=== PATIENT | female | born 1995 | race Caucasian/White ===

== ENCOUNTER 2022-03-16 12:24 | Emergency (ER) | payer OTHER, SELFPAY ==
[2022-03-16 12:45] VITALS: BP 125/80; PULSE 95; RESP 18; TEMP 36.5; O2SAT 97
--- NOTE | 2022-03-16 13:09 | ED.EAR ---
HPI - Ear Problem General Chief complaint: Ear Stated complaint: unable to hear from left ear Time Seen by Provider: 03/16/22 12:52 Source: patient Mode of arrival: ambulatory Limitations: no limitations History of Present Illness HPI Narrative: Patient presents today stating she cannot hear from her left ear. She was diagnosed with otitis media 3 days ago in the emergency department and prescribed Augmentin, which she has been taking as prescribed. States her pain has significantly decreased and currently rates at 2/10. She has been taking ibuprofen which has been providing relief. She does report some clear yellow drainage at times. Denies any additional symptoms. Related Data Home Medications Medication Instructions Recorded Confirmed amoxicillin 875 mg-potassium 1 tablet BID 03/16/22 03/16/22 clavulanate 125 mg tablet levonorgestrel 20 mcg/24 hours (8 1 device intrauterine ONCE 03/16/22 03/16/22 yrs) 52 mg intrauterine device (Mirena) Allergies Allergy/AdvReac Type Severity Reaction Status Date / Time levofloxacin [From Levaquin] Allergy Unknown Verified 03/16/22 12:51 Review of Systems Review of Systems: CONSTITUTIONAL: Denies body aches, fever, chills, or sweats. EYES: Denies visual changes, redness, or discharge. ENT: Denies rhinorrhea, congestion, sore throat. + left ear pain, drainage, decreased hearing CARDIOVASCULAR: Denies chest pain, palpitations, or edema. RESPIRATORY: Denies cough or dyspnea. GASTROINTESTINAL: Denies abdominal pain, nausea, vomiting, or diarrhea. GENITOURINARY: Denies dysuria or hematuria. SKIN: Denies rash, itching, or wounds. MUSCULOSKELETAL: Denies back pain, joint pain, or myalgia. NEUROLOGIC: Denies headache, numbness, tingling, or weakness. PSYCH: Denies depression or anxiety. PMFSH Comments At time of signature, I have reviewed and agree with nursing past medical, surgical, social and family history unless otherwise noted. Please see nursing chart for further information. There is no relevant family history pertinent to the presenting complaint Exam Narrative: GENERAL: Well-appearing, well-nourished, and in no acute distress. HEAD: Normocephalic, atraumatic. EYES: EOMI. No redness or drainage. Conjunctivae normal. ENT: Mucous membranes pink and moist. Nares clear. No rhinorrhea. Right TM normal. Left TM mildly erythematous and dull. No obvious rupture noted. No drainage noted in the canal. NECK: Normal AROM. Supple. No lymphadenopathy. CHEST: No respiratory distress. EXTREMITIES: Normal range of motion. No edema. SKIN: Warm, dry, no rash. Capillary refill normal. Normal skin turgor. NEURO: No focal deficits. Alert and oriented x3. Gait steady. PSYCH: Normal affect. No signs of depression or anxiety. Course Course Level of Care: Express Care Visit Vital Signs Vital signs: Vital Signs Temperature 97.7 F 03/16/22 12:45 Pulse Rate 95 03/16/22 12:45 Respiratory Rate 18 03/16/22 12:45 Blood Pressure 125/80 03/16/22 12:45 Pulse Oximetry 97 03/16/22 12:45 Oxygen Delivery Room Air 03/16/22 12:45 Temperature 97.7 F 03/16/22 12:45 Pulse Rate 95 03/16/22 12:45 Respiratory Rate 18 03/16/22 12:45 Blood Pressure 125/80 03/16/22 12:45 Pulse Oximetry 97 03/16/22 12:45 Oxygen Delivery Room Air 03/16/22 12:45 Reviewed. Pt has been instructed to follow up with her PCP regarding her elevated blood pressure today. Medical Decision Making Differential Diagnosis Differential Diagnosis: Otitis media, otitis externa, ruptured TM Vital Signs Vital Signs: Vital Signs Temperature 97.7 F 03/16/22 12:45 Pulse Rate 95 03/16/22 12:45 Respiratory Rate 18 03/16/22 12:45 Blood Pressure 125/80 03/16/22 12:45 Pulse Oximetry 97 03/16/22 12:45 Oxygen Delivery Room Air 03/16/22 12:45 Temperature 97.7 F 03/16/22 12:45 Pulse Rate 95 03/16/22 12:45 Respiratory Rate 18 03/16/22 12:45 Blood
== END 2022-03-16 13:18 | disposition home or self-care (01) ==
PROVIDERS: Emergency Provider Nurse Practitioner
DX: H66.92 Otitis media, unspecified, left ear (principal)
CPT/HCPCS: 99202; G0463

== ENCOUNTER 2024-01-14 11:36 | Emergency (ER) | payer OTHER, SELFPAY ==
--- NOTE | 2024-01-14 11:44 | ED.NAVMDI ---
HPI - Nausea/Vomiting/Diarrhea General Chief complaint: Nausea/Vomiting/Diarrhea Stated complaint: stomach pain and diarrhea Source: patient and RN notes reviewed Mode of arrival: ambulatory Limitations: no limitations History of Present Illness HPI Narrative: 28-year-old female presented for complaint of diarrhea and abdominal cramping for 2 days. States the cramping is intermittent, associated with having BM, rating 8/10 at worst, current pain level 2/10. Reports up to 6 stools yesterday. Denies hematochezia, melena, urinary complaints, dizziness, fatigue, fevers or chills. She has taken Tums and Pepto-Bismol for symptoms. Patient tested positive for COVID on 01/02 test negative by 01/07. Denies sick contacts or recent travel. Related Data Home Medications Medication Instructions Recorded Confirmed levonorgestrel 21 mcg/24 hr (up to 1 device intrauterine ONCE 03/16/22 03/16/22 8 years) 52 mg intrauterine device (Mirena) Allergies Allergy/AdvReac Type Severity Reaction Status Date / Time levofloxacin [From Levaquin] Allergy Unknown Verified 01/14/24 11:45 Review of Systems Review of Systems: CONSTITUTIONAL: Denies body aches, fever, chills ENT: Denies rhinorrhea, congestion CARDIOVASCULAR: Denies chest pain, palpitations, or edema. RESPIRATORY: Denies cough or dyspnea. GASTROINTESTINAL: Endorses abdominal cramping, diarrhea. Denies nausea, vomiting, hematochezia, melena, hematemesis GENITOURINARY: Denies dysuria, hematuria, or CVA tenderness. SKIN: Denies rash, itching, or wounds. MUSCULOSKELETAL: Denies back pain, joint pain, or myalgia. NEUROLOGIC: Denies headache, numbness, tingling, or weakness. All systems reviewed & are unremarkable except as noted in HPI and below PMFSH Comments At time of signature, I have reviewed and agree with nursing past medical, surgical, social and family history unless otherwise noted. Please see nursing chart for further information. There is no relevant family history pertinent to the presenting complaint Exam Narrative: GENERAL: Well-appearing, and in no acute distress. EYES: EOMI. Conjunctivae normal. ENT: Mucous membranes pink and moist. CHEST: No respiratory distress. Clear to auscultation. HEART: Regular rate and rhythm. No murmur appreciated. Normal peripheral pulses. ABDOMEN: abd soft, nondistended, normal active bowel sounds. Nontender abdomen, No guarding, rebound tenderness, asymmetry EXTREMITIES: Normal range of motion. No edema. SKIN: Warm, dry, no rash. Capillary refill normal. Normal skin turgor. NEURO: No focal deficits. Alert and oriented x3. PSYCH: Normal affect. Course Course Emergency Course: Patient is aware of diagnosis, understands and agrees to treatment plan. Anticipatory guidance given. Patient agrees to follow-up as directed and is aware of reasons to seek care at the emergency department. Portions of this record may have been created with voice recognition software Level of Care: Express Care Visit MDM - Nausea/Vomiting/Diarrhea MDM Narrative Medical decision making narrative: Discussed physical exam findings. Advised supportive measures and signs/symptoms to go to the ER. Pt is appropriate for outpt treatment and f/u. Differential Diagnosis Differential diagnosis: Likely traveler's diarrhea, food poisoning, gastroenteritis, clostridium difficile infection, dehydration and other Discharge Plan Discharge Clinical Impression: Acute diarrhea Patient Disposition: Home, Self-Care Condition: Stable Instructions: Antibiotic Form, Acute Diarrhea (ED) Additional Instructions: Stay hydrated. Take small sips of fluid containing electrolytes frequently. Clear liquids (broth, jello, tea, sprite, pedialyte) [place] foods (bananas, rice, applesauce, toast, crackers) Avoid fatty, greasy, fried or spicy foods. Limit dairy until symptoms are improved. [id number] Imodium according to package directions Recommen
[2024-01-14 11:45] VITALS: BP 111/70; PULSE 68; RESP 18; TEMP 37.1; O2SAT 97
[2024-01-14 11:46] VITALS: BP 111/70; PULSE 68; RESP 18; TEMP 37.1; O2SAT 97
== END 2024-01-14 12:04 | disposition home or self-care (01) ==
PROVIDERS: Emergency Provider Nurse Practitioner Family; Referring Provider Emergency Medicine
DX: R19.7 Diarrhea, unspecified (principal); Z86.16 Personal history of COVID-19
CPT/HCPCS: 99213; G0463

== ENCOUNTER 2024-04-01 15:28 | Emergency (ER) | payer OTHER, SELFPAY ==
--- NOTE | 2024-04-01 15:31 | ED.URI ---
HPI - URI/Sore Throat General Chief Complaint: Upper Respiratory Infection Stated Complaint: SORE THROAT/HEADACHE/FEVER Time Seen by Provider: 04/01/24 15:30 Source: patient Mode of arrival: ambulatory Limitations: no limitations History of Present Illness HPI Narrative: Keo is a 28-year-old female patient presenting to the clinic today with complaints of sore throat, fever, headache x1 day. She reports she did have some nausea and vomiting as well. Denies any chest pain or shortness of breath. No URI symptoms. MD elicited complaint: sore throat Related Data Home Medications Medication Instructions Recorded Confirmed levonorgestrel 21 mcg/24 hr (up to 1 device intrauterine ONCE 03/16/22 04/01/24 8 years) 52 mg intrauterine device (Mirena) Allergies Allergy/AdvReac Type Severity Reaction Status Date / Time levofloxacin [From Levaquin] Allergy Unknown Verified 04/01/24 15:41 Review of Systems Review of Systems: Pertinent positives per HPI. Patient denies any rash,visual changes, dizziness, cough, shortness of breath, chest pain, palpitations, nausea, vomiting, diarrhea, constipation, abdominal pain, or any urinary issues. PMFSH Comments At the time of my signature, I reviewed and agree with the nursing past medical, surgical, social, and family history. There is no relevant family history pertinent to the patient complaint. Exam Narrative: General: Well-developed, well nourished, in no apparent distress Head: Normocephalic, atraumatic Eyes: Pupils equally round and reactive to light bilaterally, EOM intact, sclera and conjunctive clear, no discharge, lids normal Ears: TMs intact and clear, ear canals clear, no drainage, grossly hearing normal. Nose: Nares patent, no discharge, no inflammation, no sinus tenderness. Mouth: Oral pharynx red with bilateral tonsillar enlargement and exudate without lesions or masses, good dentition, MMM. Neck: Supple, trachea midline, enlargement of anterior cervical nodes, no thyroid masses or goiter palpable. Cardio: Regular rate and rhythm, s1 and s2 normal, no murmur appreciated. Resp: Clear to auscultation bilaterally, no rhonchi, rales, wheezing or rubs Course Course Emergency Course: Portions of this record may have been created with voice recognition software. Level of Care: Express Care Visit Vital Signs Vital signs: Vital Signs Temperature 36.6 C 04/01/24 15:41 Pulse Rate 93 04/01/24 15:41 Respiratory Rate 16 04/01/24 15:41 Blood Pressure 113/81 04/01/24 15:41 Pulse Oximetry 99 04/01/24 15:41 Temperature 36.6 C 04/01/24 15:41 Pulse Rate 93 04/01/24 15:41 Respiratory Rate 16 04/01/24 15:41 Blood Pressure 113/81 04/01/24 15:41 Pulse Oximetry 99 04/01/24 15:41 Vital signs reviewed MDM - URI/Sore Throat MDM Narrative Medical decision making narrative: At the time of visit patient is resting comfortably on the exam table. Patient appears to be nontoxic. Labs: Strep test was obtained and positive in the clinic today. Plan: Patient has strep pharyngitis. Prescription for amoxicillin was sent to the pharmacy. Supportive measures were discussed with the patient and they voiced understanding discharge instructions and agrees to treatment plan. Return precautions reviewed Differential Diagnosis Differential diagnosis: Likely upper respiratory infection, otitis media, sinusitis, viral infection, bronchitis, influenza, pharyngitis and other (COVID) Lab Data Labs: Lab Results 04/01/24 Range/Units 15:47 POC Grp A Strep Screen Positive (Negative) Discharge Plan Discharge Clinical Impression: Strep pharyngitis Patient Disposition: Home, Self-Care Condition: Stable Instructions: Antibiotic Form, Strep Throat (ED) Additional Instructions: Strep test was positive in the clinic today. Change her toothbrush in 24 hours after initiation of the antibiotics Take prescription medications only as prescribed-amoxicillin Increase fluids and stay well hydrated Tylenol/motrin for pain/fever Flonase and OTC antihistamines as directed Vicks vapor rub to open sinuses Sinus rinses for congestion Cepacol spray, cough drops, throat lozenges, warm tea with honey/lemon, gargle salt water to soothe throat BRAT diet for diarrhea Clear liquids x 24 hours then advance as tolerated for nausea/vomiting Go to the ED if you develop a worsening in your condition- high fever not controlled by Tylenol or Motrin, dehydration, weakness, lethargy, shortness of breath, or chest pain. Follow up with your PCP in 3-5 days if symptoms persist. Prescriptions: New amoxicillin 875 mg tablet 875 mg PO Q12H 10 Days Qty: 20 0RF No Action Mirena 20 mcg/24 hours (8 yrs) 52 mg Intrauterine Device 1 device INTRAUTERINE ONCE Rx Instructions: as a single dose Follow-up/Referrals: UNKNOWN,DOCTOR [Non-Staff] - Stand Alone Forms: Work/School Release IP Time of Disposition: 15:44 Quality NIHSS Nursing Documentation ED NIHSS nursing documentation: reviewed/agree
[2024-04-01 15:41] VITALS: BP 113/81; PULSE 93; RESP 16; TEMP 36.6; O2SAT 99
[2024-04-01 15:49] LABS: EDSTREPNEGPOS1 Positive (Negative)
== END 2024-04-01 16:17 | disposition home or self-care (01) ==
PROVIDERS: Emergency Provider Nurse Practitioner Family
DX: J02.0 Streptococcal pharyngitis (principal)
CPT/HCPCS: 87880; 99213; G0463

== ENCOUNTER 2024-11-21 18:11 | Emergency (ER) | payer OTHER, SELFPAY ==
--- OUTSIDE RECORDS SUMMARY | 2024-11-21 18:14 | XMS_ITS | Clinical Summary ---
Author Organization [facility] Address [address] [place] [id number] Care Team Providers Care Network Systems Administrator Name Role Phone Bianca Peter MD Primary Care Provider [phone] Allergies Active Allergy Reactions Criticality Noted Date Comments Levofloxacin Swelling,Anaphylaxis ,Other (See comments) High 07/31/2018 Swelling Medications escitalopram (LEXAPRO) 5 mg tablet Take 1 tablet (5 mg total) by mouth daily 30 tablet 2 3 Active albuterol 2.5 mg /3 mL (0.083 %) nebulizer solutionIndicat ions:Bronchospa stic Pulmonary Disease Take 6 mL (5 mg total) by nebulization 4 (four) times a day as needed for wheezing or shortness of breath 1-2 vials every 4-6hrs as needed 540 mL 5 3 Active albuterol HFA (PROVENTIL HFA,VENTOLIN HFA,PROAIR HFA) 90 mcg/actuation inhaler Inhale 2 puffs every 6 (six) hours as needed for wheezing 3 each 4 3 Active Active Problems Problem Noted Date Diagnosed Date Anxiety, generalized 08/29/2022 Benign mole 08/29/2022 Overview (08/29/2022): Refer to derm Immunizations Immunization Administration Dates Next Due Influenza, Unspecified 02/28/2023(Deferred: Anuradha ent Refused) Surgical History Surgery Date Site/Laterality Comments HUMERUS FRACTURE SURGERY Left Medical History Medical History Date Comments Anxiety Depression Family History Medical History Relation Name Comments Anxiety disorder Father Depression Father Prostate cancer Father Cervical cancer Maternal Grandmother Ovarian cancer Maternal Grandmother Anxiety disorder Mother Crohn's disease Mother Depression Mother Skin cancer Mother Breast cancer Other Ariadna dickinson Crohn's disease Sister Relation Name Status Comments Father Alive Maternal Grandmother Mother Alive Other Great alok Sister Alive Social History Tobacco Use Types Packs/Day Years Used Date Smoking Tobacco: Former Cigarettes 0.5 9.2 2 014 - 06/2022 Smokeless Tobacco: Never Alcohol Use Standard Drinks/Week Comments Yes 0 (1 standard drink = 0.6 oz pur e alcohol) rare- every 3 months AUDIT-C Answer Date Recorded Q1: How often do you have a drink containing alc ohol? 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 Gender Identity Not on file Sexual Orientation Not on file Obstetrics History Para Term AB IAB SAB Ectopic Multiple Livin g Live Births 2 2 2 2 2 Date Outcome GA Total Labor Labor/2nd/3rd Weight Sex Type Anes PTL Mery A1 A5 Name Clin Term Term Last Filed Vital Signs Vital Sign Reading Time Taken Comments Blood Pressure 102/68 02/28/2023 3:03 PM CDT Pulse 67 02/28/2023 3:03 PM CDT Temperature 37.1 C (98.7 F) 02/28/2023 3:03 PM CDT Respiratory Rate 18 08/25/2022 11:36 AM CDT Oxygen Saturation 99% 02/28/2023 3:03 PM CDT Inhaled Oxygen Concentration - - Weight 59 kg (130 lb) 02/28/2023 3:03 PM CDT Height 162.6 cm (5' 4) 02/28/2023 3:03 PM CDT Body Mass Index 22.31 02/28/2023 3:03 PM CDT Plan of Treatment Health Maintenance Due Date Last Done Comments Hepatitis C Screening 1993 DTaP/Tdap/Td Vaccine (1 - Tdap) 2004 Varicella Vaccines (1 of 2 - 13+ 2-dose series) 2006 Hepatitis B Screening 10/18/2011 Depression Screening 08/26/2023 08/25/2022, 08/25/2022 Cervical Cancer Screening 10/02/2023 10/01/2022 Regular Well Visit/Exam 18-64 10/02/2023 10/01/2022 Influenza Vaccine (Season Ended) 2024 HPV Vaccines Aged Out No longer eligi ble based on patient's age to complete this topic Pneumococcal vaccine <65 Aged Out No longer eligible based on patient's age to complete this topic Medical Devices Implanted Type Area Oracle Ebs Architect Device Identifier Shelf Expiration Date Model / Serial / Lot Synthes 04.016.035s Multiloc 8mm 9.5mm 160mm Cannulated Humeral Left Proximal Short - [id number] Implanted:Qty: 1 on 11/30/2019 by Emmett Quevedo MD at [facility] Left: Humerus Synthes I 05/01/2024 04.016.035 S / / [id number] Synthes 04.019.040s Multiloc 4.5mm 3.9mm 40mm Blunt Tip Self Cut Suture Hole - [id number] Implanted:Qty: 1 on 11/30/2019 by Emmett Quevedo MD at [facility] Left: Humerus Synthes I 04.019.040 S / / Synthes 04.019.042s Multiloc 4.5mm 3.9mm 42mm Blunt Tip Self Cut Suture Hole - [id number] Implanted:Qty: 1 on 11/30/2019 by Emmett Quevedo MD at [facility] Left: Humerus Synthes I 04.019.042 S / / Synthes 04.005.416 4mm 3.3mm 26mm Lock Self Tap Blunt Tip 2 Lead Tibial T25 Full - [id number] Implanted:Qty: 2 on 11/30/2019 by Emmtet Quevedo MD at [facility] Left: Humerus Synthes I 04.005.416 / / Synthes 04.019.038s Multiloc 4.5mm 3.9mm 38mm Blunt Tip Self Cut Suture Hole - [id number] Implanted:Qty: 1 on 11/30/2019 by Emmett Quevedo MD at [facility] Left: Humerus Synthes I 04.019.038 S / / Explanted Type Area [employer] Ebs Architect Device Identifier Shelf Expiration Date Model / Serial / Lot Synthes 04.019.034s Multiloc 4.5mm 3.9mm 34mm Blunt Tip Self Cut Suture Hole - [id number] Implanted:Qty: 1 Explanted:Qty: 1 on 11/30/2019 at [facility] Left: Humerus Synthes I 04.019.034S / / Synthes 292.26 Balbir 2.5mm 285mm [place]car [place] Wire Fixation Stainless Steel - [id number] Explanted:Qty: 1 on 11/30/2019 at [facility] Left: Humerus Synthes I 292.26 / / Procedures Procedure Name Priority Date/Time Associated Diagnosis Comments PAP WITH REFLEX TO HIGH RISK HPV Routine 10/01/2022 9:41 AM CDT Encounter for well woman exam with routine gynecological exam from Last 3 Months or Most Recently Relevant to Health Maintenance Results * Pap with reflex to High Risk HPV (10/01/2022 9:41 AM CDT) Thin prep (Pap test) 10/01/2022 9:41 AM CDT 10/04/2022 9:41 AM CDT Narrative PATHOLOGY [facility] - 10/06/2022 2:21 PM CDT [facility] Department of Pathology [address] [place] [address] Final Report Note to Patients: This report may contain a detailed description of human tissue sent by a health care provider to the laboratory for pathologic evaluation. The content of this report is essential for diagnosis and may provide important critical findings. This information may be unfamiliar to patients to review without a medical professional present. It is advised that the patient review this report in the presence of a health care provider who can answer questions and explain the details. Patient Name: CONSTANZA TOBIN Address: [address] [place] [address] Gender: F : 1995 (Age: 26) Service: Location: Hospital #: [id number] Patient Type: E SPECIMEN Taken: 10/01/2022 Received: 10/04/2022 Accessioned:: 10/05/2022 Reported: 10/06/2022 Physician(s): Dory Quiros M.D. [facility] Diagnosis: SOURCE OF SPECIMEN Imaged Thinprep Pap Test w/ Reflex HPV - Store Standards Associate Cytologic Material: STATEMENT OF ADEQUACY - Satisfactory for evaluation; endocervical/transformation zone component present GENERAL CATEGORIZATION: - Negative for intraepithelial lesion or malignancy ANTONIO Blanchard(ASCP) Report Electronically Reviewed and Signed Out By ANTONIO Blanchard(ASCP) 10/06/2022 14:21:14Specimen(s) Received: A: Imaged Thinprep Pap Test w/ Reflex HPV - Store Standards Associate Cytologic Material Clinical History: Contraceptive History: IUD The Pap test is a screening test used to aid in the detection of cervical cancer and its precursors. It should not be the sole means by which malignant and premalignant lesions are diagnosed. Both false negative and false positive results may occur. It also has poor sensitivity for the detection of endometrial lesions and should not be used to evaluate suspected endometrial abnormalities. For these reasons it is most important to obtain Pap tests at regular intervals. The performance characteristics of some immunohistochemical stains, fluorescence in-situ hybridization tests and immunophenotyping by flow cytometry cited in this report (if any) were determined by the Surgical Pathology Department at [facility] as part of an ongoing supplier quality engineer program and in compliance with federally mandated regulations drawn from the Clinical Laboratory Improvement Act of 1988 (CLIA '88). Some of these tests rely on the use of analyte specific reagents and are subject to specific labeling requirements by the US Food and Drug Administration. Such diagnostic tests may only be performed in a facility that is certified by the Department of Health and Human Services as a high complexity laboratory under CLIA '88. The FDA has determined that such clearance or approval is not necessary. This test is used for clinical purposes. It should not be regarded as investigational or for research. Nevertheless, federal rules concerning the medical use of analyte specific reagents require that the following disclaimer be attached to the report: This test was developed and its performance characteristics determined by the Surgical Pathology Department [facility]. It has not been cleared or approved by the U. S. Food and Drug Administration. Dory Quiros MD LAB CYTOLOGY ORDERABLES F inal Result [facility] from Last 3 Months or Most Recently Relevant to Health Maintenance Insurance [facility] Care Teams Network Systems Administrator Relationship Specialty Start Date End Date Bianca Peter MD PCP - General Internal Medicine 08/25/22
--- OUTSIDE RECORDS SUMMARY | 2024-11-21 18:14 | XMS_ITS | Referral Summary ---
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 Gender Identity Not on file Sexual Orientation Not on file Last Filed Vital Signs Vital Sign Reading [...] 02/28/2023 3:03 PM CDT Plan of Treatment Not on file Medical Devices Implanted Type Area Fire Pot Operator Device Identifier Shelf Expiration Date Model / Serial / Lot Synthes .016.035s Multiloc 8mm 9.5mm 160mm Cannulated Humeral Left Proximal Short - [id number] Implanted:Qty: 1 on 11/30/2019 by Emmett Quevedo MD at [facility] Left: Humerus Synthes I 05/01/2024 04.016.035 S / / [id number] Synthes 04.019.040s Multiloc 4.5mm 3.9mm 40mm Blunt Tip Self Cut Suture Hole - [id number] Implanted:Qty: 1 on 11/30/2019 by Emmett Quevedo MD at [facility] Left: Humerus Synthes I 04.019.040 S / / Synthes 04.019.042s Multiloc 4.5mm 3.9mm 42mm Blunt Tip Self Cut Suture Hole - [id number] Implanted:Qty: 1 on 11/30/2019 by Emmett Quevedo MD at [facility] Left: Humerus Synthes I 04.019.042 S / / Synthes 04.005.416 4mm 3.3mm 26mm Lock Self Tap Blunt Tip 2 Lead Tibial T25 Full - [id number] Implanted:Qty: 2 on 11/30/2019 by Emmett Quevedo MD at [facility] Left: Humerus Synthes I 04.005.416 / / Synthes 04.019.038s Multiloc 4.5mm 3.9mm 38mm Blunt Tip Self Cut Suture Hole - [id number] Implanted:Qty: 1 on 11/30/2019 by Emmett Quevedo MD at [facility] Left: Humerus Synthes I 04.019.038 S / / Explanted Type Area Fire Pot Operator Device Identifier Shelf Expiration Date Model / Serial / Lot Synthes 04.019.034s Multiloc 4.5mm 3.9mm 34mm Blunt Tip Self Cut Suture Hole - [id number] Implanted:Qty: 1 Explanted:Qty: 1 on 11/30/2019 at [facility] Left: Humerus Synthes I 04.019.034S / / Synthes 292.26 Balbir 2.5mm 285mm [place] Wire Fixation Stain[employer] - [id number] Explanted:Qty: 1 on 11/30/2019 at [facility] Left: Humerus Synthes I 292.26 / / [...] CDT 10/04/2022 9:41 AM CDT Narrative PATHOLOGY [facility] - 10/06/2022 2:21 PM CDT [facility] Department of Pathology [address] [place] [address] [place] [address] Final Report Note to Patients: This report [...] the details. Patient Name: CONSTANZA TOBIN Address: [address] [place] [id number] Gender: F : 1995 (Age: 26) Service: Location: [facility] #: [id number] Patient Type: [facility] SPECIMEN Taken: 10/01/2022 Received: 10/04/2022 Accessioned:: 10/05/2022 Reported: 10/06/2022 Physician(s): Dory Quiros M.D. [facility] Diagnosis: SOURCE OF SPECIMEN Imaged Thinprep Pap Test w/ Reflex HPV - Fountain Pen Turner Cytologic Material: STATEMENT OF ADEQUACY - Satisfactory for evaluation; endocervical/transformation zone component present GENERAL CATEGORIZATION: - Negative for intraepithelial lesion or malignancy ANTONIO Blanchard(ASCP) Report Electronically Reviewed and Signed Out By ANTONIO Blanchard(ASCP) 10/06/2022 14:21:14Specimen(s) Received: A: Imaged Thinprep Pap Test w/ Reflex HPV - Fountain Pen Turner Cytologic Material Clinical History: Contraceptive History: IUD [...] determined by the Surgical Pathology Department at [facility] as part of an ongoing supplier quality specialist program and in compliance with federally mandated [...] characteristics determined by the Surgical Pathology Department [facility]. It has not been cleared or approved by the [place]. [place]. Food and Drug Administration. Dory Quiros MD LAB CYTOLOGY ORDERABLES F inal Result [facility] from Last 3 Months or Most Recently Relevant to Health Maintenance Insurance [facility] Care Teams Coding Team Lead Relationship Specialty Start Date End Date Bianca Peter MD PCP - General Internal Medicine 08/25/22
--- OUTSIDE RECORDS SUMMARY | 2024-11-21 18:14 | XMS_ITS | Encounter Summary ---
Author Organization [facility] Address [facility] [place] [address] Care Team Providers Care Building Pressure Washer Name Role Phone Bernard Carver MD Primary Care Provider Brittany driscoll None, Provider Primary Care Provider Unavaila ble Encounter Details Date Type Department Care Team (Latest Contact Info) Description 03/07/2018 Abstract [facility] Delfino Tatum MD Social History Tobacco Use Types Packs/Day Years Used Date Smoking Tobacco: Never Assessed Comments Unknown Sex and Gender Information Value Date Recorded Sex Assigned at Not on file Legal Sex Female 6:39 PM CDT Gender Identity Not on file Sexual Orientation Not on file documented as of this encounter Plan of Treatment Not on file documented as of this encounter Visit Diagnoses Not on filedocumented in this encounter Additional Health Concerns Infection Onset Date Last Indicated Resolved Time COVID-19 Rule Out 08/13/2024 08/13/2024 08/13/2024 12:06 PM CDT Respiratory Rule Out 08/13/2024 08/13/2024 025 11:53 AM CDT documented as of this encounter Care Teams Building Pressure Washer Relationship Specialty Start Date End Date Bernard Carver MD PCP - General 11/18/10 03/13/22 None, ProviderMD PCP - General UNKNOWN PHYSICIAN SPECIALTY 03/14/22 documented as of this encounter
--- OUTSIDE RECORDS SUMMARY | 2024-11-21 18:14 | XMS_ITS | Encounter Summary ---
Author Organization [facility] Address [facility] [place] [address] Care Team Providers Care Junior Mechanical Engineer Name Role Phone Bernard Carver MD Primary Care Provider Brittany driscoll None, Provider Primary Care Provider Unavaila ble Encounter Details Date Type Department Care Team (Late st Contact Info) Description 03/05/2017 [place] [address] , Generic ConversionMD Social History Tobacco Use Types Packs/Day Years [...] documented as of this encounter Care Teams Junior Mechanical Engineer Relationship Specialty Start Date End Date Bernard Carvre MD PCP - General 11/18/10 03/13/22 None, ProviderMD PCP - General UNKNOWN PHYSICIAN SPECIALTY 03/14/22 documented as of this encounter
--- OUTSIDE RECORDS SUMMARY | 2024-11-21 18:14 | XMS_ITS | Clinical Summary ---
Author Organization [facility] Address [facility] [place] [address] Care Team Providers Care Ekg Manager Name Role Phone None, Provider MD Primary Care Provider Unavaila ble Allergies Active Allergy Reactions Criticality Noted Date Comments Levofloxacin Anaphylaxis High 02/16/2020 Medications No known medications Social History Tobacco Use Types Packs/Day Years Used Date Smoking Tobacco: Every Day Cigarettes Smokeless Tobacco: Never Tobacco Cessation:Ready to Q uit: Not Asked; Counseling Given: Not Answered Alcohol Use Standard Drinks/Week Comments Yes 0 (1 standard drink = 0.6 oz pur e alcohol) occasionally Comments No Sex and Gender Information Value Date Recorded Sex Assigned at Not on file Legal Sex Female 6:39 PM CDT Gender Identity Not on file Sexual Orientation Not on file Last Filed Vital Signs Vital Sign Reading Time Taken Comments Blood Pressure 115/71 08/13/2024 1:00 PM CDT Pulse 55 08/13/2024 1:00 PM CDT Temperature 36.9 C (98.4 F) 08/13/2024 11:02 AM CDT Respiratory Rate 19 08/13/2024 1:00 PM CDT Oxygen Saturation 99% 08/13/2024 1:00 PM CDT Inhaled Oxygen Concentration - - Weight 59 kg (130 lb) 03/14/2022 3:32 AM COMMERCIAL SALES CONSULTANT Height 160 cm (5' 3) 03/14/2022 3:31 AM COMMERCIAL SALES CONSULTANT Body Mass Index 23.03 03/14/2022 3:31 AM COMMERCIAL SALES CONSULTANT Plan of Treatment Health Maintenance Due Date Last Done Comments Annual Physical 1996 Hepatitis C 10/18/2011 DTaP, Tdap and Td Vaccines ( 1 - Tdap) 2012 Hepatitis B Vaccines (1 of 3 - 19+ 3-dose series) 2012 Pneumococcal Vaccine: Pediat rics (0 to 5 Years) and At-Risk Patients (6 to 49 Years) (1 of 2 - PCV) 2012 HPV Vaccines (1 - 3-dose SCD M series) 2020 Cervical Cancer Screening Pa p with HPV Testing (Age 30 to 64) Every 5 Years 10/18/2023 COVID-19 Vaccine (1 - 2023-2 5 season) 2024 Cervical Cancer Screening Pa p Smear (Age 30 to 64) Every 3 Years 10/01/2025 10/01/2022 Cervical Cancer Screening with HPV 10/01/2025 Meningococcal B Vaccine Aged Out No l onger eligible based on patient's age to complete this topic Meningococcal Vaccine Aged Out No raheem erika eligible based on patient's age to complete this topic RSV Immunizations Under 20 Months Aged Out No longer eligible based on patient's age to complete this topic Insurance [place] [address] [place] [address] Care Teams Ekg Manager Relationship Specialty Start Date End Date None, Provider, MD PCP - General UNKNOWN PHYSICIAN SPECIALTY 03/14/22
--- OUTSIDE RECORDS SUMMARY | 2024-11-21 18:14 | XMS_ITS | Data Portability ---
Author Organization [facility] Address [address] [place] [address] Assessment No assessment recorded. Plan of Treatment Reminders Order Date Submit Date Provider Last Modified By Organization Details Last Modified Time Details Appointments None recorde d. Lab STI panel 025 10/04/19 [place] [facility], [address] [place], [address], 10:08:32 Referral None recorde d. Procedures None recorde d. Surgeries None recorde d. Imaging None recorde d. Medication Orders None recorde d. Patient TargetsNo targets recorded. Patient InstructionsNo instructions recorded. Reason for Referral None Reported. Results Created Date Observation Date Name Description Value Unit Range Abnormal Flag Note LastModifiedBy Organization Detail LastModifiedTime 10/04/1910/08/2024 STI PANEL trichomonas vaginalis TRICH neg negati ve normal Not Available [facility] [address] [place] [address], [address], 10/09/2024 10:08:32 10/04/19 25 10/08/2024 STI PANEL chlamydia trachomatis CT neg negati ve normal This repor t is inten ded for us in clini tarun monit oring and manag ement of lisa gibson. It is not inten ded for use in medic al-le gal appli catio n. Not Available [facility] [address] [place], [address], 10/09/2024 10:08:32 10/04/19 25 10/08/2024 STI PANEL neisseria gonorrhoeae GC neg negati ve normal This repor t is inten ded for us in clini tarun monit oring and manag ement of patie nts. It is not inten ded for use in medic al-le gal appli catio n. Not Available [facility] [address] [place], [address], 10/09/2024 10:08:32 Result Notes None recorded. Problems Name Problem SNOMED Code Status Onset Date Resolution Date Notes Provider Name and Address Organization Details Recorded Time Family history of Ovarian carcinom a Completed 201705/22/2018 Family history of ovarian cancer; Location : None Severity : Moderate Progress : Stable Added By: Celia Escobar Add to Current Problems : YES ProblemS tatus: Current Family history of ovarian cancer; Severity : Moderate Progress : Stable Added By: Celia Escobar Add to Current Problems : NO ProblemS tatus: Resolve Not Available [facility] 1 04:56:51 Family history of malignan t neoplasm of ovary [id number] Completed 201707/31/2018 Family history of malignan t neoplasm of ovary; Progress : Stable Added By: Celia Escobar Add to Current Problems : NO ProblemS tatus: Resolve Not Available [facility] 2 20:56:44 Educatio n Completed 201710/03/2017 Encounte r for other general counseli ng and advice on contrace ption; Progress : Stable Added By: Celia Escobar Add to Current Problems : NO ProblemS tatus: Resolve Family planning advice; Location : None Progress : Stable Added By: Celia Escobar Add to Current Problems : YES ProblemS tatus: Resolve Not Available [facility] 2 10:21:47 Malignan t neoplasm of ovary [id number] Active 2017 Family history of ovarian cancer; Location : None Progress : Stable Added By: Celia Escobar Add to Current Problems : YES ProblemS tatus: Current Not Available [facility] 2 10:21:49 Family planning educatio n done [id number] 9104 Completed 201710/03/2017 Family planning advice; Location : None Severity : Moderate Progress : Stable Added By: Celia Escobar Add to Current Problems : YES ProblemS tatus: Resolve Not Available [facility] 1 01:23:21 Oral contrace ption NOS Completed 201705/17/2018 Initiati on of oral contrace ptives; Location : None Severity : Moderate Progress : Stable Added By: Macy Wahl Add to Current Problems : YES ProblemS tatus: Resolve Not Available [facility] 1 04:56:52 Uses combined oral contrace ption [id number] Completed 201705/17/2018 Encounte r for initial prescrip tion of contrace ptive pills; Progress : Stable Added By: Macy Wahl Add to Current Problems : NO ProblemS tatus: Resolve Not Available [facility] 2 10:21:48 Normal pregnanc y 71973794 Active 2017 Medical visit for normal pregnanc y; Location : None Progress : Stable Added By: Kala Ackerman Add to Current Problems : YES ProblemS tatus: Current Not Available [facility] 2 20:56:43 Rubella screenin g status [id number] Completed 201707/03/2018 Antenata l screenin g; unspecif ied; Location : None Progress : Stable Added By: Kala Ackerman Add to Current Problems : YES ProblemS tatus: Current Encounte r for antenata l screenin g, unspecif ied; Progress : Stable Added By: Kala Ackerman Add to Current Problems : NO ProblemS tatus: Resolve Not Available [facility] 2 20:56:44 Clinical finding Completed 201707/03/2018 Encounte r for supervis ion of normal pregnanc y, unspecif ied, unspecif ied trimeste r; Progress : Stable Added By: Kala Ackerman Add to Current Problems : NO ProblemS tatus: Resolve Not Available [facility] 2 20:56:43 Gestatio n period, 20 weeks 66512379 Completed 201707/03/2018 20 weeks gestatio n of pregnanc y; Progress : Stable Added By: Kala Ackerman Add to Current Problems : NO ProblemS tatus: Resolve Not Available [facility] 2 10:21:47 anatomy study Active 2017 Encounte r for anatomic survey; Location : None Progress : Stable Added By: Kala Ackerman Add to Current Problems : YES ProblemS tatus: Current Not Available [facility] 2 20:56:45 Gestatio n period, 24 weeks 432252340 Completed 201707/03/2018 24 weeks gestatio n of pregnanc y; Progress : Stable Added By: Kala Ackerman Add to Current Problems : NO ProblemS tatus: Resolve Not Available [facility] 2 20:56:44 Gestatio n period, 29 weeks 73740132 Completed 201807/03/2018 29 weeks gestatio n of pregnanc y; Progress : Stable Added By: Nubia Saleh Add to Current Problems : NO ProblemS tatus: Resolve Not Available [facility] 2 10:21:48 Normal pregnanc y in [facility] herbie [id number] 4106 Completed 201807/31/2018 Encounte r for supervis ion of other normal pregnanc y, second trimeste r; Progress : Stable Added By: Kala Ackerman Add to Current Problems : NO ProblemS tatus: Resolve; Start Date : 04/17/20 18 Encou nter for supervis ion of other normal pregnanc y, third trimeste r; Progress : Stable Added By: Melanie Chatman Add to Current Problems : NO ProblemS tatus: Resolve Not Available [facility] 2 10:21:48 Gestatio n period, 31 weeks 01543741 Completed 201807/03/2018 31 weeks gestatio n of pregnanc y; Progress : Stable Added By: Veena Goldman Add to Current Problems : NO ProblemS tatus: Resolve Not Available [facility] 2 20:56:43 Gestatio n period, 33 weeks 50747778 Completed 201807/03/2018 33 weeks gestatio n of pregnanc y; Progress : Stable Added By: Veena Goldman Add to Current Problems : NO ProblemS tatus: Resolve Not Available [facility] 2 20:56:44 Uterine size for dates discrepa ncy Completed 201807/31/2018 Uterine size-erasmo e discrepa ncy, third trimeste r; Progress : Stable Added By: Leanne Yancey Add to Current Problems : NO ProblemS tatus: Resolve Not Available [facility] 2 10:21:49 Gestatio n period, 35 weeks 27984870 Completed 201807/31/2018 35 weeks gestatio n of pregnanc y; Progress : Stable Added By: Melanie Chatman Add to Current Problems : NO ProblemS tatus: Resolve Not Available [facility] 2 10:21:47 Gestatio n period, 36 weeks 25385659 Completed 201807/31/2018 36 weeks gestatio n of pregnanc y; Progress : Stable Added By: Melanie Chatman Add to Current Problems : NO ProblemS tatus: Resolve Not Available [facility] 2 10:21:50 Antenata l screenin g Completed 201807/31/2018 Encounte r for antenata l screenin g of mother; Progress : Stable Added By: Kala Ackerman Add to Current Problems : NO ProblemS tatus: Resolve; Start Date : 03/20/20 18 Encou nter for antenata l screenin g for Streptoc occus B; Progress : Stable Added By: Melanie Chatman Add to Current Problems : NO ProblemS tatus: Resolve Encounte r for other specifie d antenata l screenin g; Progress : Stable Added By: Melanie Chatman Add to Current Problems : NO ProblemS tatus: Resolve; Start Date : 03/20/20 18 Not Available [facility] 2 10:21:47 Gestatio n period, 37 weeks 26758655 Completed 201807/31/2018 37 weeks gestatio n of pregnanc y; Progress : Stable Added By: Lilly Dean Add to Current Problems : NO ProblemS tatus: Resolve Not Available [facility] 2 10:21:49 Gestatio n period, 38 weeks 40320847 Completed 201807/31/2018 38 weeks gestatio n of pregnanc y; Progress : Stable Added By: Melanie Chatman Add to Current Problems : NO ProblemS tatus: Resolve Not Available [facility] 2 10:21:49 Lochia finding Active 2018 Encounte r for routine postpart um follow-u p; Progress : Stable Added By: Marielos Hernandez Add to Current Problems : YES ProblemS tatus: Current Not Available [facility] 2 20:56:45 Depressi on screenin g Active 2018 Encounte r for screenin g for maternal depressi on; Progress : Stable Added By: Marielos Hernandez Add to Current Problems : YES ProblemS tatus: Current Not Available [facility] 2 20:56:44 Insertio n of intraute rine contrace ptive device done [id number] 9109 Active 2018 Encounte r for insertio n of intraute rine contrace ptive device; Severity : Moderate Progress : Stable Added By: Marielos Hernandez Add to Current Problems : YES ProblemS tatus: Current Not Available [facility] 1 04:56:51 Insertio n of intraute rine contrace ptive device Active 2018 Encounte r for insertio n of intraute rine contrace ptive device; Progress : Stable Added By: Marielos Hernandez Add to Current Problems : YES ProblemS tatus: Current Not Available [facility] 2 20:56:45 Notes:Encounter for an atomic survey (V28.81) ; OnsetDate: 03/20/2018; ResolvedDate: 05/22/2018; Progress: Stable Added By: Kala Ackerman Add to Current Problems: NO ProblemStatus: Resolve screening; unspecified (V28.9) ; OnsetDate: 12/19/2017; ResolvedDate: 05/22/2018; Progress: Stable Added By: Kala Ackerman Add to Current Problems: NO ProblemStatus: Resolve Medical visit for normal (V22.1) ; OnsetDate: 12/19/2017; ResolvedDate: 05/22/2018; Progress: Stable Added By: Kala Ackerman Add to Current Problems: NO ProblemStatus: Resolve Initiation of oral contraceptives (V25.01) ; OnsetDate: 08/15/2017; ResolvedDate: 05/17/2018; Progress: Stable Added By: Macy Garcia Add to Current Problems: NO ProblemStatus: Resolve Family history of ovarian cancer (V16.41) ; OnsetDate: 08/04/2017; ResolvedDate: 05/22/2018; Progress: Stable Added By: Celia Escobar Add to Current Problems: NO ProblemStatus: Resolve Problem Notes None recorded. Procedures Surgical History Date Name Laterality Status Provider Name and Address Organization Details Recorded Time procedure on humerus completed Kevyn Segovia [facility] Lalina [facility] 10/03/2024 16:56:10 Imaging Results None recorded. Procedure Notes None recorded. Medical Equipment None Reported. Allergies Allergen ID Allergen Name Allergen Category Reaction Reaction Severity Criticality Documentation Date Start Date Code Code System Note Provider Name and Address Organization Details Recorded Time 515259 Levaquin medicatio n Not available Not available Not available 02/20/20212017 08457 2 RxNorm Sever ity: Moder ate; Not Available [facility] 01:17:38 753300 levofloxa ashleigh medicatio n anaphylax is Not available [facility] 10/03/20242019 18749 RxNorm Kevyn [facility] Lalina [facility] 16:54:12 Medications Name Sig Start Date Stop Date Status Note LastModified by Organization Details LastModified Time Vitamin tablet Take 1 tablet( s) by mouth daily 01/13 completed Multivita min Tablet Allow Substitut ion: True Refill Denied: No Not Available Not Available Not Available amoxicill in 875 mg tablet TAKE 1 TABLET BY MOUTH EVERY 12 HOURS FOR 10 DAYS 10/03 completed Not Available Not Available Not Available Augmentin 500 mg-125 mg tablet 1 tab BID X 7 days 07/17 completed Augmentin 500mg/125 mg Tablet RxNorm: 854753 Allow Substitut ion: True Refill Denied: No Not Available Not Available Not Available 05/21 (28) 1 mg-20 mcg (21)/75 mg (7) tablet Take 1 tablet( s) by mouth daily as directe d. 12/19 completed 05/21 28 Day 20mcg/1mg /75mg Tablet RxNorm: 6215593 Allow Substitut ion: True Refill Denied: No Not Available Not Available Not Available Vitals Date Recorded Body height Body mass index (BMI) Body weight Body temperature Systolic And Diastolic Provider Name and Address Organization Details Last Updated DateTime 10/03/2024 165.1 cm 23.3 kg/m2 73952.9 3 g 97.6 [degF] 124/72 mm[Hg] Kevyn Segovia [email or web address] 16:53:56 Social History Question Answer Notes LastModified by [employer] [facility] Details LastModified Time Tobacco Smoking Status Former Smoker Kevyn Segovia [email or web address] 10/03/2024 16:46:32 How Many Years Have You Consumed Alcohol? 15 [email or web address] Information not available 10/03/2024 Are You Blind Or Do You Have Difficulty Seeing? No [email or web address] Information not available 10/03/2024 Are You Deaf Or Do You Have Serious Difficulty Hearing? No [email or web address] Information not available 10/03/2024 What Type Of Diet Are You Following? REGULAR [email or web address] Information not available 10/03/2024 What Is The Highest Grade Or Level Of School You Have Completed Or The Highest Degree You Have Received? [id number] [email or web address] Information not available 10/03/2024 When Did You Quit Smoking? 1-5yearssinc [email or web address] te Information not available 10/03/2024 How Many Children Do You Have? 2 Information not available 10/03/2024 Are There Any Occupational Health Risks Where You Work? No [email or web address] Information not available 10/03/2024 What Is Your Relationship Status? Single [email or web address] Information not available 10/03/2024 Are You Sexually Active? Yes Information not available 10/03/2024 At What Age Did You Start Smoking Tobacco? 13 [email or web address] Information not available 10/03/2024 How Much Tobacco Do You Smoke? No Information not available 10/03/2024 How Many Years Have You Smoked Tobacco? 13 [email or web address] Information not available 10/03/2024 Sex: Unknown Functional Status Question Answer Note LastModified by Organizat ion Details LastModified Time Do you use any illicit or recreational drugs? No [email or web address] Information not available 10/03/2024 What is your level of alcohol consumption? Moderate [email or web address] Information not available 10/03/2024 Are you currently employed? Yes [email or web address] Information not available 10/03/2024 What is your exercise level? Occasional [email or web address] Information not available 10/03/2024 Mental Status None recorded. Family History Relationship Description Onset Age of this Age Resolved Age Notes LastModified by Organization Details LastModified Time Mother Depressive disorder [email or web address] Not available 10/03 16:46:32 Mother Malignant neoplastic disease Not available 10/03 16:46:32 Mother Hypertensive disorder [email or web address] Not available 10/03 16:46:32 Maternal Grandmother Malignant tumor of cervix [email or web address] Not available 10/03 16:46:32 Father Hypercholest erolemia Not available 10/03 16:46:32 Father Depressive disorder Not available 10/03 16:46:32 Father Malignant neoplastic disease [email or web address] Not available 10/03 16:46:32 Medical History Condition Response Depression Y Anxiety Disorder Y Chicken Pox Y Gynecological History Statement/Question Response Date of Last Colonoscopy Flow Moderate Date of last HPV Date of LMP 09/10/2024 Most Recent Bone Density HPV Vaccine N Date of Last Pap Smear Most Recent Mammogram Current Control Method IUD Age at Menarche 10 Obstetrics History GPAL:G 3 P 2 0 1 2 Type Value Full Term 2 Induced 1 Living 2 Total 3 Past Encounters Encounter ID Performer Location Encounter Start Date Encounter Closed Date Diagnosis/Indication Diagnosis SNOMED-CT Code Diagnosis ICD10 Code Diagnosis Note [id number] [facility] [address] [facility] FAWAD CALDWELL [phone] 10/03/2024 16:29:54 10/03/2024 17:28:59 Intrauterine contraceptive device in situ 500099987 Z30.431 IUD strings WNL Venereal d isease screening 075130140 Z11.3 Health Concerns Section Related Observation LastModified by Organization Detai ls LastModified Time None Recorded Concern Status LastModified by Organization Details LastModified Time None Recorded Advance Directives Directive None Recorded Payers Insurance Date Sequence Insurance Name Policy Number Policy Fermin Covered Member ID Fermin Member ID Guarantor Name 10/09/2024 1 [facility] - DOS ON OR AFTER 20 (MEDICAID REPLACEMENT - HMO) Constanza Curry [id number] Constanza Curry Notes Date Note Type Note Provider Name and Address Organization Details Recorded Time 10/03/2024 text/html Constanza is here to discuss her IUD. Pt states she's had the IUD for years and has never had any bleeding. She had a some spotting about 2 months ago. She states the spotting has been sporadic and not like a full cycles. She is not having any other symptoms. Pt just wants to be certain it is normal. KRISTA SIMPSON, ANJANA- [address] [place], [address], [facility] 10/03/2024 17:17:04 OBGyn Episode Ob Episode Information Episode Created Date Number of Fetuses Patient Bloodtype Patient rh Status Prepregnancy Weight lbs Domestic Partner Domestic Partner Phone Father Name [employer] Research Engineer Status 07/17/19 22 1 CLOSED Fetus Data First Name Last Name Admitted to NICU Weight (g) Sex Living Outcome Pediatric Complications Fetus ID Race Codes Race Delivery Type 2721.55 2 M [id number] Torsten Calculation Initial Torsten Date Initial Exam Date Initial Exam Provider Initial Ultrasound Date Last Menstrual Period Date Ultra Sound Weeks Gestation 0 Eighteen To Twenty Week Torsten Update Ultra Sound Date Fundal Height At Umbil Quickening Date Ultra Sound Latest Weeks Gestation Final Torsten Confirmed By Final Torsten Confirmed Date Final Torsten Date Ultra Sound Latest Days Gestation 0 0 Menstrual History Last Menstrual Date Menses Monthly On Bcp Conception Prior Menses Frequency Hcg Plus Date Menarche Onset Age Delivery Information Delivery Date Delivery Type Labor Anesthesia Weeks Gestation Incision Type Labor Labor Length Hrs Delivered By Post Complications Tubal Sterilization Discharge Date Comments 3 273 false Discharge Information Feeding Method Contraceptive Method Maternal HG B and HCT Levels Ob Episode Information Episode Created Date Number of Fetuses Patient Bloodtype Patient rh Status Prepregnancy Weight lbs Domestic Partner Domestic Partner Phone Father Name [employer] Research Engineer Status 07/17/19 22 1 CLOSED Fetus Data First Name Last Name Admitted to NICU Weight (g) Sex Living Outcome Pediatric Complications Fetus ID Race Codes Race Delivery Type 3486.98 85 M [id number] Torsten Calculation Initial Torsten Date Initial Exam Date Initial Exam Provider Initial Ultrasound Date Last Menstrual Period Date Ultra Sound Weeks Gestation 0 Eighteen To Twenty Week Torsten Update Ultra Sound Date Fundal Height At Umbil Quickening Date Ultra Sound Latest Weeks Gestation Final Torsten Confirmed By Final Torsten Confirmed Date Final Torsten Date Ultra Sound Latest Days Gestation 0 0 Menstrual History Last Menstrual Date Menses Monthly On Bcp Conception Prior Menses Frequency Hcg Plus Date Menarche Onset Age Delivery Information Delivery Date Delivery Type Labor Anesthesia Weeks Gestation Incision Type Labor Labor Length Hrs Delivered By Post Complications Tubal Sterilization Discharge Date Comments 9 None 273 false Discharge Information Feeding Method Contraceptive Method Maternal HG B and HCT Levels
[2024-11-21 18:18] VITALS: BP 111/82; PULSE 84; RESP 16; TEMP 36.7; O2SAT 100
--- NOTE | 2024-11-21 18:31 | ED_ITS ---
HPI - Skin/Abscess/Foreign Bdy General Stated complaint: skin irritation Time Seen by Provider: 11/21/24 18:20 Source: patient Mode of arrival: ambulatory Limitations: no limitations History of Present Illness HPI narrative: Constanza is a 29-year-old female patient presenting to the clinic today with complaints of a skin sores to the left forehead. She reports that her boyfriend's son had impetigo. States she woke up this morning and it looked like a pimple in a pop with some yellow drainage. Is concerned about impetigo. States the area is tender to touch. No fevers, chills, body aches. Not currently draining. Related Data Home Medications ?Medication ?Instructions ?Recorded ?Confirmed ?Last Taken ?Type levonorgestrel (Mirena) 1 device intrauterine ONCE 03/16/22 04/01/24 Unknown History Allergies Allergy/AdvReac Type Severity Reaction Status Date / Time levofloxacin (From Levaquin) Allergy Unknown Verified 11/21/24 18:34 Review of Systems Review of Systems: Pertinent positives per HPI. Patient denies any fever, chills, rash, headache, visual changes, dizziness, cough, runny nose, sore throat, shortness of breath, chest pain, palpitations, nausea, vomiting, diarrhea, constipation, abdominal pain, or any urinary issues. PMFSH Comments At the time of my signature, I reviewed and agree with the nursing past medical, surgical, social, and family history. There is no relevant family history pertinent to the patient complaint. Exam Narrative: General: Well-developed, well nourished, in no apparent distress Head: Normocephalic, atraumatic. Cardio: Regular rate and rhythm, s1 and s2 normal, no murmur appreciated. Resp: Clear to auscultation bilaterally, no rhonchi, rales, wheezing or rubs. Integumentary: Peterson, warm, and dry, very small scabbed area to the left forehead with mild tenderness to palpation, very mild redness, no erythema, no drainage Course Course Emergency Course: Portions of this record may have been created with voice recognition software. Level of Care: Express Care Visit Vital Signs Vital signs: Vital Signs Temperature 36.7 C 11/21/24 18:18 Pulse Rate 84 11/21/24 18:18 Respiratory Rate 16 11/21/24 18:18 Blood Pressure 111/82 11/21/24 18:18 Pulse Oximetry 100 11/21/24 18:18 Oxygen Delivery Room Air 11/21/24 18:18 Temperature 36.7 C 11/21/24 18:18 Pulse Rate 84 11/21/24 18:18 Respiratory Rate 16 11/21/24 18:18 Blood Pressure 111/82 11/21/24 18:18 Pulse Oximetry 100 11/21/24 18:18 Oxygen Delivery Room Air 11/21/24 18:18 Vital signs reviewed MDM - Skin/Abscess/Foreign Bdy MDM Narrative Medical decision making narrative: At the time of visit patient is resting comfortably on the exam table. Patient appears to be nontoxic. Patient has a small scabbed sore to the left side of her forehead with very mild redness. Started out as a pustule and popped some brown discharge. Has been exposed to impetigo and is concerned that she may have contracted it. Is requesting medication. No drainage Plan: Patient has a skin sore to the left forehead. Prescription for mupirocin cream was sent to the pharmacy. Supportive measures were discussed with the patient and they voiced understanding discharge instructions and agrees to treatment plan. Return precautions reviewed Differential Diagnosis Differential diagnosis: Likely abscess of skin or subcutaneous tissue, viral exanthem, dermatophytosis, urticaria, herpes zoster, allergic reaction to drug, cellulitis, eczema, insect bites, impetigo and contact dermatitis Discharge Plan Discharge Clinical Impression: Bacterial skin infection Patient Disposition: Home Condition: Stable Instructions: Antibiotic Form, Impetigo (ED) Additional Instructions: Keep wound covered if draining Keep wound clean and dry Apply mupirocin cream to the affected area twice daily as directed Watch for signs and symptoms of worsening infection- redness, streaking, swelling, purulent discharge, or increase in pain. Follow up with your PCP in 2 3 days for wound check Patient Language: Macedonian Prescriptions: New mupirocin [Centany] 2 % ointment 1 applic topical BID 7 Days Qty: 15 0RF No Action Mirena 20 mcg/24 hours (8 yrs) 52 mg Intrauterine Device 1 device INTRAUTERINE ONCE Rx Instructions: as a single dose amoxicillin 875 mg tablet 875 mg PO Q12H 10 Days Qty: 20 0RF Follow-up/Referrals: PHYSICIAN,RACING BOARD MARKER [Primary Care Provider] - Time of Disposition: 18:24 Quality NIHSS Nursing Documentation ED NIHSS nursing documentation: reviewed/agree
== END 2024-11-21 18:30 | disposition home or self-care (01) ==
PROVIDERS: Emergency Provider Nurse Practitioner Family; Referring Provider Emergency Medicine
DX: L08.9 Local infection of the skin and subcutaneous tissue, unspecified (principal); B96.89 Other specified bacterial agents as the cause of diseases classified elsewhere
CPT/HCPCS: 99213; G0463

== ENCOUNTER 2024-11-26 11:09 | Emergency (ER) | payer OTHER, SELFPAY ==
--- NOTE | 2024-11-26 11:12 | ED.URI ---
HPI - URI/Sore Throat General Chief Complaint: Upper Respiratory Infection Stated Complaint: congestion/loss of voice Time Seen by Provider: 11/26/24 11:36 Source: patient and RN notes reviewed Mode of arrival: ambulatory Limitations: no limitations History of Present Illness HPI Narrative: 29-year-old female presents with concern for nasal congestion and hoarse voice. Reports the voices started on Tuesday. Reports this morning she woke up with nasal congestion and runny nose. She tried Zyrtec and Mucinex when she had the hoarse voice. She denies fever, body aches, chills, sweats. She denies cough or sore throat. MD elicited complaint: nasal congestion Related Data Home Medications ?Medication ?Instructions ?Recorded ?Confirmed ?Last Taken ?Type levonorgestrel (Mirena) 1 device intrauterine ONCE 03/16/22 04/01/24 Unknown History Allergies Allergy/AdvReac Type Severity Reaction Status Date / Time levofloxacin (From Levaquin) Allergy Mild Anaphylactic Verified 11/26/24 11:33 Shock Review of Systems Review of Systems: CONSTITUTIONAL: Denies malaise, chills, sweats, or fever. EYES: Denies visual changes, redness, or discharge. ENT: Reports rhinorrhea, congestion, hoarse voice. Denies sinus pain, otalgia and sore throat. CARDIOVASCULAR: Denies chest pain, palpitations, or edema. RESPIRATORY: Denies cough. Denies dyspnea. GASTROINTESTINAL: Denies abdominal pain, nausea, vomiting, diarrhea SKIN: Denies rash or itching. MUSCULOSKELETAL: Denies myalgia. NEUROLOGIC: Denies headache. All systems reviewed & are unremarkable except as noted in HPI and below PMFSH Comments At time of signature, agree with nursing past medical, surgical, social and family history. There is no relevant family history pertinent to the presenting complaint Exam Narrative: GENERAL: Well-appearing, well-nourished, and in no acute distress. HEAD: Normocephalic EYES: PERRLA, conjunctivae clear ENT: Nares clear, turbinates edematous and erythematous on the left, clear discharge. Mucous membranes moist. TM pearly davies with dull light reflex bilaterally; no tragal tenderness. Oropharynx not erythematous without lesions. Tonsils not enlarged and without exudate, no drooling, mild hoarseness, no trismus, uvula midline. NECK: Supple. No lymphadenopathy CHEST: Clear to auscultation, breath sounds equal. No wheezing, rhonchi, rales, or stridor. No respiratory distress, speaks in full sentences. HEART: Regular rate and rhythm. No murmur heard. SKIN: Warm, dry, no rash. NEURO: Alert and oriented x3. PSYCH: Normal mood and affect Course Course Emergency Course: Patient is aware of diagnosis, understands and agrees to treatment plan. Anticipatory guidance given. Patient agrees to follow-up as directed and is aware of reasons to seek care at the emergency department. Portions of this record may have been created with voice recognition software Level of Care: Express Care Visit Vital Signs Vital signs: Reviewed. MDM - URI/Sore Throat MDM Narrative Medical decision making narrative: Differential diagnosis considered: Cox virus, strep pharyngitis, allergic rhinitis, upper respiratory tract infection, sinusitis, rhinosinusitis, nasopharyngitis. viral pharyngitis, otitis media, otitis externa, pneumonia, bronchitis, viral cough syndrome, viral syndrome, and influenza. Exam findings show no acute concerns or changes; patient is non-toxic appearing and is in no distress. Patient is appropriate for outpatient treatment and follow-up. Lab Data Attestation: I reviewed the patient's lab results. Critical Care Time Critical Care Time Critical Care Time: No Discharge Plan Discharge Clinical Impression: Upper respiratory infection Patient Disposition: Home Condition: Stable Instructions: Upper Respiratory Infection (ED) Additional Instructions: Viral illness may last between 7-21 days; antibiotics do not cure viral illness and are NOT recommended at this time. Recommend antihistamine such as Benadryl at night time and Zyrtec or Keri during the day Also, recommend symptomatic treatment includes: rest, fluids, and increase humidity of the air at home. Recommend Acetaminophen as directed on the bottle to reduce fever, pain, headache. Avoid smoking/second-hand smoke. Please schedule a follow-up visit with your personal physician for further evaluation and treatment within 3-5days. Including recheck and discussion of your blood pressure. If your symptoms persist, change or worsen significantly before you can contact your personal physician then please, without delay, go to the emergency department for further evaluation. Patient Language: Portuguese Prescriptions: New pseudoephedrine HCl [12 Hour Decongestant] 120 mg tablet extended release 120 mg PO Q12H PRN (Reason: nasal congestion) Qty: 20 0RF ipratropium bromide 21 mcg (0.03 %) spray,non-aerosol 2 spray NASAL TID PRN (Reason: nasal drainage) Qty: 30 0RF Rx Instructions: administer into each nostril No Action Mirena 20 mcg/24 hours (8 yrs) 52 mg Intrauterine Device 1 device INTRAUTERINE ONCE Rx Instructions: as a single dose mupirocin [Centany] 2 % ointment 1 applic topical BID 7 Days Qty: 15 0RF Follow-up/Referrals: PHYSICIAN,DECK LID FITTER [Primary Care Provider] - Stand Alone Forms: Work/School Release IP Time of Disposition: 11:44
[2024-11-26 11:32] VITALS: BP 101/73; PULSE 65; RESP 16; TEMP 36.5; O2SAT 100
--- OUTSIDE RECORDS SUMMARY | 2024-11-26 11:33 | XMS_ITS | Referral Summary ---
Author Organization 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[employer] Gender Identity Not on file Sexual Orientation [...] on file Medical Devices Implanted Type Area Rail Car Repairman Device Identifier Shelf Expiration Date Model / Serial / Lot Synthes .016.035s Multiloc 8mm 9.5mm 160mm Cannulated Humeral Left Proximal Short - [id number] Implanted:Qty: 1 on 11/30/2019 by Emmett Quevedo MD at [facility] Left: Humerus Synthes I 05/01/2024 04.016.035 S / / [id number] Synthes 04.019.040s Multiloc 4.5mm 3.9mm 40mm Blunt Tip Self Cut Suture Hole - [id number] Implanted:Qty: 1 on 11/30/2019 by Emmett Quevedo MD at [facility] Left: Humerus Synthes I 04.019.040 S / / Synthes 04.019.042s Multiloc 4.5mm 3.9mm 42mm Blunt Tip Self Cut Suture Hole - [id number] Implanted:Qty: 1 on 11/30/2019 by Emmett Quevedo MD at [facility] Left: Humerus Synthes I 04.019.042 S / / Synthes 04.005.416 4mm 3.3mm 26mm Lock Self Tap Blunt Tip 2 Lead Tibial T25 Full - [id number] Implanted:Qty: 2 on 11/30/2019 by Emmett Quevedo MD at [facility] Left: Humerus Synthes I 04.005.416 / / Synthes 04.019.038s Multiloc 4.5mm 3.9mm 38mm Blunt Tip Self Cut Suture Hole - [id number] Implanted:Qty: 1 on 11/30/2019 by Emmett Quevedo MD at [facility] Left: Humerus Synthes I 04.019.038 S / / Explanted Type Area Rail Car Repairman Device Identifier Shelf Expiration Date Model / Serial / Lot Synthes 04.019.034s Multiloc 4.5mm 3.9mm 34mm Blunt Tip Self Cut Suture Hole - [id number] Implanted:Qty: 1 Explanted:Qty: 1 on 11/30/2019 at [facility] Left: Humerus Synthes I 04.019.034S / / Synthes 292.26 Balbir 2.5mm 285mm [place] Wire Fixation Stainless Steel - [id number] Explanted:Qty: 1 on 11/30/2019 at [facility] Left: Humerus Synthes I 292.26 / [...] CDT 10/04/2022 9:41 AM CDT Narrative PATHOLOGY [facility] - 10/06/2022 2:21 PM CDT [facility] Department of Pathology [address] [place] [address] [place] [address] Final Report Note to Patients: This report [...] the details. Patient Name: CONSTANZA TOBIN Address: [address] [place] [id number] Gender: F : 1995 (Age: 26) Service: Location: [facility] #: [id number] Patient Type: [facility] SPECIMEN Taken: 10/01/2022 Received: 10/04/2022 Accessioned:: 10/05/2022 Reported: 10/06/2022 Physician(s): Dory Quiros M.D. [facility] Diagnosis: SOURCE OF SPECIMEN Imaged Thinprep Pap Test w/ Reflex HPV - Beverage Specialist Cytologic Material: STATEMENT OF ADEQUACY - Satisfactory for evaluation; endocervical/transformation zone component present GENERAL CATEGORIZATION: - Negative for intraepithelial lesion or malignancy ANTONIO Blanchard(ASCP) Report Electronically Reviewed and Signed Out By ANTONIO Blanchard(ASCP) 10/06/2022 14:21:14Specimen(s) Received: A: Imaged Thinprep Pap Test w/ Reflex HPV - Beverage Specialist Cytologic Material Clinical History: Contraceptive History: IUD [...] determined by the Surgical Pathology Department at [facility] as part of an ongoing quality control lab tech program and in compliance with federally mandated [...] characteristics determined by the Surgical Pathology Department [facility]. It has not been cleared or approved by the U. S. Food and Drug Administration. Dory Quiros MD LAB CYTOLOGY ORDERABLES F inal Result [facility] from Last 3 Months or Most Recently Relevant to Health Maintenance Insurance [facility] Care Teams Drug Abuse Resistance Education Officer Relationship Specialty Start Date End Date Bianca Peter MD PCP - General Internal Medicine 08/25/22
--- OUTSIDE RECORDS SUMMARY | 2024-11-26 11:33 | XMS_ITS | Data Portability ---
Author Organization [employer] [facility] Address [address] [place] [address] Assessment No assessment recorded. Plan of Treatment Reminders Order Date Submit Date Provider Last Modified By Organization Details Last Modified Time Details Appointments None recorde d. Lab STI panel 025 10/04/19 MARISSA [place] [facility], [address] [place], [address], 10:08:32 Referral None recorde d. Procedures None [...] TRICH neg negati ve normal Not Available [facility] [address] [place] [address], [address], 10/09/2024 10:08:32 10/04/19 25 10/08/2024 STI PANEL chlamydia trachomatis CT neg negati ve normal This repor t is inten ded for us in clini tarun monit oring and manag ement of lisa gibson. It is not inten ded for use in medic al-le gal appli catio n. Not Available [facility] [address] [place], [address], 10/09/2024 10:08:32 10/04/19 25 10/08/2024 STI PANEL neisseria gonorrhoeae GC neg negati ve normal This repor t is inten ded for us in clini tarun monit oring and manag ement of patie nts. It is not inten ded for use in medic al-le gal appli catio n. Not Available [place] [facility] [address] [place], [address], 10/09/2024 10:08:32 Result Notes None recorded. Problems [...] : NO ProblemS tatus: Resolve Not Available [facility] 1 04:56:51 Family history of malignan t neoplasm of ovary [id number] Completed 201707/31/2018 Family history of malignan t neoplasm of ovary; Progress : Stable Added By: Celia Escoabr Add to Current Problems : NO ProblemS tatus: Resolve Not Available [facility] 2 20:56:44 Educatio n Completed 201710/03/2017 Encounte r for other general counseli ng and advice on contrace ption; Progress : Stable Added By: Celia Escobar Add to Current Problems : NO ProblemS tatus: Resolve Family planning advice; Location : None Progress : Stable Added By: Celia Escobar Add to Current Problems : YES ProblemS tatus: Resolve Not Available [facility] 2 10:21:47 Malignan t neoplasm of ovary [id number] Active 2017 Family history of ovarian cancer; Location : None Progress : Stable Added By: Celia Escboar Add to Current Problems : YES ProblemS tatus: Current Not Available [facility] 2 10:21:49 Family planning educatio n done [id number] 9104 Completed 201710/03/2017 Family planning advice; Location : None Severity : Moderate Progress : Stable Added By: Celia Escobar Add to Current Problems : YES ProblemS tatus: Resolve Not Available [facility] 1 01:23:21 Oral contrace ption NOS Completed 201705/17/2018 Initiati on of oral contrace ptives; Location : None Severity : Moderate Progress : Stable Added By: Macy Wahl Add to Current Problems : YES ProblemS tatus: Resolve Not Available [facility] 1 04:56:52 Uses combined oral contrace ption 547653391 Completed 201705/17/2018 Encounte r for initial prescrip tion of contrace ptive pills; Progress : Stable Added By: Macy Wahl Add to Current Problems : NO ProblemS tatus: Resolve Not Available [facility] 2 10:21:48 Normal pregnanc y 43693446 Active 2017 Medical visit for normal pregnanc y; Location : None Progress : Stable Added By: Kala Ackerman Add to Current Problems : YES ProblemS tatus: Current Not Available [facility] 2 20:56:43 Rubella screenin g status 047400861 Completed 201707/03/2018 Antenata l screenin g; unspecif ied; Location : None Progress : Stable Added By: Kala Ackerman Add to Current Problems : YES ProblemS tatus: Current Encounte r for antenata l screenin g, unspecif ied; Progress : Stable Added By: Kala Ackerman Add to Current Problems : NO ProblemS tatus: Resolve Not Available [facility] 2 20:56:44 Clinical finding Completed 201707/03/2018 Encounte r for supervis ion of normal pregnanc y, unspecif ied, unspecif ied trimeste r; Progress : Stable Added By: Kala Ackerman Add to Current Problems : NO ProblemS tatus: Resolve Not Available [facility] 2 20:56:43 Gestatio n period, 20 weeks 12516884 Completed 201707/03/2018 20 weeks gestatio n of pregnanc y; Progress : Stable Added By: Kala Ackerman Add to Current Problems : NO ProblemS tatus: Resolve Not Available [facility] 2 10:21:47 anatomy study Active 2017 Encounte r for anatomic survey; Location : None Progress : Stable Added By: Kala Ackerman Add to Current Problems : YES ProblemS tatus: Current Not Available [facility] 2 20:56:45 Gestatio n period, 24 weeks 645407853 Completed 201707/03/2018 24 weeks gestatio n of pregnanc y; Progress : Stable Added By: Kala Ackerman Add to Current Problems : NO ProblemS tatus: Resolve Not Available [facility] 2 20:56:44 Gestatio n period, 29 weeks 52792966 Completed 201807/03/2018 29 weeks gestatio n of pregnanc y; Progress : Stable Added By: Nubia Saleh Add to Current Problems : NO ProblemS tatus: Resolve Not Available [facility] 2 10:21:48 Normal pregnanc y in [facility] herbie [id number] 4106 Completed 201807/31/2018 Encounte r for supervis [...] : NO ProblemS tatus: Resolve Not Available [facility] 2 10:21:48 Gestatio n period, 31 weeks 20065927 Completed 201807/03/2018 31 weeks gestatio n of pregnanc y; Progress : Stable Added By: Veena Goldman Add to Current Problems : NO ProblemS tatus: Resolve Not Available [facility] 2 20:56:43 Gestatio n period, 33 weeks 55949815 Completed 201807/03/2018 33 weeks gestatio n of pregnanc y; Progress : Stable Added By: Veena Goldman Add to Current Problems : NO ProblemS tatus: Resolve Not Available [facility] 2 20:56:44 Uterine size for dates discrepa ncy Completed 201807/31/2018 Uterine size-erasmo e discrepa ncy, third trimeste r; Progress : Stable Added By: Leanne Yancey Add to Current Problems : NO ProblemS tatus: Resolve Not Available [facility] 2 10:21:49 Gestatio n period, 35 weeks 91386528 Completed 201807/31/2018 35 weeks gestatio n of pregnanc y; Progress : Stable Added By: Melanie Chatman Add to Current Problems : NO ProblemS tatus: Resolve Not Available [facility] 2 10:21:47 Gestatio n period, 36 weeks 72464414 Completed 201807/31/2018 36 weeks gestatio n of pregnanc y; Progress : Stable Added By: Melanie Chatman Add to Current Problems : NO ProblemS tatus: Resolve Not Available [facility] 2 10:21:50 Antenata l screenin g Completed [...] Start Date : 03/20/20 18 Not Available [facility] 2 10:21:47 Gestatio n period, 37 weeks 26175586 Completed 201807/31/2018 37 weeks gestatio n of pregnanc y; Progress : Stable Added By: Lilly Dean Add to Current Problems : NO ProblemS tatus: Resolve Not Available [facility] 2 10:21:49 Gestatio n period, 38 weeks 58337914 Completed 201807/31/2018 38 weeks gestatio n of pregnanc y; Progress : Stable Added By: Melanie Chatman Add to Current Problems : NO ProblemS tatus: Resolve Not Available [facility] 2 10:21:49 Lochia finding Active 2018 Encounte r for routine postpart um follow-u p; Progress : Stable Added By: Marielos Hernandez Add to Current Problems : YES ProblemS tatus: Current Not Available [facility] 2 20:56:45 Depressi on screenin g Active 2018 Encounte r for screenin g for maternal depressi on; Progress : Stable Added By: Marielos Hernandez Add to Current Problems : YES ProblemS tatus: Current Not Available [facility] 2 20:56:44 Insertio n of intraute rine contrace ptive device done [id number] 9109 Active 2018 Encounte r for insertio n of intraute rine contrace ptive device; Severity : Moderate Progress : Stable Added By: Marielos Hernandez Add to Current Problems : YES ProblemS tatus: Current Not Available [facility] 1 04:56:51 Insertio n of intraute rine contrace ptive device Active 2018 Encounte r for insertio n of intraute rine contrace ptive device; Progress : Stable Added By: Mareilos Hernandez Add to Current Problems : YES ProblemS tatus: Current Not Available [facility] 2 20:56:45 Notes:Encounter for an atomic survey [...] Time procedure on humerus completed Kevyn Segovia [facility] [employer] [facility] 10/03/2024 16:56:10 Imaging Results None recorded. Procedure Notes None recorded. Medical Equipment None Reported. Allergies Allergen ID Allergen Name Allergen Category Reaction Reaction Severity Criticality Documentation Date Start Date Code Code System Note Provider Name and Address Organization Details Recorded Time 685656 Levaquin medicatio n Not available Not available Not available 02/20/20212017 01136 2 RxNorm Sever ity: Moder ate; Not Available [facility] 01:17:38 739852 levofloxa ashleigh medicatio n anaphylax is Not available [facility] 10/03/20242019 36953 RxNorm Kveyn [facility] [employer] [facility] 16:54:12 Medications Name Sig Start Date Stop [...] 07/17 completed Augmentin 500mg/125 mg Tablet RxNorm: 594197 Allow Substitut ion: True Refill Denied: No Not Available Not Available Not Available 05/21 (28) 1 mg-20 mcg (21)/75 mg (7) tablet Take 1 tablet( s) by mouth daily as directe d. 12/19 completed 05/21 28 Day 20mcg/1mg /75mg Tablet RxNorm: 9188887 Allow Substitut ion: True Refill Denied: No Not Available Not Available Not Available Vitals Date Recorded Body height Body mass index (BMI) Body weight Body temperature Systolic And Diastolic Provider Name and Address Organization Details Last Updated DateTime 10/03/2024 165.1 cm 23.3 kg/m2 74700.9 3 g 97.6 [degF] 124/72 mm[Hg] Kevyn Segovia [employer] 16:53:56 Social History Question Answer Notes LastModified by [employer] Details LastModified Time Tobacco Smoking Status Former Smoker Kevyn Segovia [facility] [employer] 10/03/2024 16:46:32 How Many Years Have You Consumed Alcohol? 15 [email or web address] Information not available 10/03/2024 Are You Blind Or Do You Have Difficulty Seeing? No [email or web address] Information not available 10/03/2024 Are You Deaf Or Do You Have Serious Difficulty Hearing? No [email or web address] Information not available 10/03/2024 What Type Of Diet Are You Following? REGULAR [email or web address] Information not available 10/03/2024 What Is The Highest Grade Or Level Of School You Have Completed Or The Highest Degree You Have Received? JZ42308-4 [email or web address] Information not available 10/03/2024 When Did You Quit Smoking? 1-5yearssinc elastcigaret te [email or web address] Information not available 10/03/2024 How Many Children Do You Have? 2 Information not available 10/03/2024 Are There Any Occupational Health Risks Where You Work? No [email or web address] Information not available 10/03/2024 What Is Your Relationship Status? Single [email or web address] Information not available 10/03/2024 Are You Sexually Active? Yes [email or web address] Information not available 10/03/2024 At What Age Did You Start Smoking Tobacco? 13 [email or web address] Information not available 10/03/2024 How Much Tobacco Do You Smoke? No Information not available 10/03/2024 How Many Years Have You Smoked Tobacco? 13 [email or web address] Information not available 10/03/2024 Sex: Unknown Functional Status Question Answer Note LastModified by Organizat ion Details LastModified Time Do you use any illicit or recreational drugs? No Information not available 10/03/2024 What is your level of alcohol consumption? Moderate [email or web address] Information not available 10/03/2024 Are you currently employed? Yes [email or web address] Information not available 10/03/2024 What is your exercise level? Occasional [email or web address] Information not available 10/03/2024 Mental Status None recorded. Family History Relationship Description Onset Age of this Age Resolved Age Notes LastModified by Organization Details LastModified Time Mother Depressive disorder [email or web address] Not available 10/03 16:46:32 Mother Malignant neoplastic disease [email or web address] Not available 10/03 16:46:32 Mother Hypertensive disorder [email or web address] Not available 10/03 16:46:32 Maternal Grandmother Malignant tumor of cervix [email or web address] Not available 10/03 16:46:32 Father Hypercholest erolemia [email or web address] Not available 10/03 16:46:32 Father Depressive disorder [email or web address] Not available 10/03 16:46:32 Father Malignant neoplastic disease [email or web address] Not available 10/03 16:46:32 Medical History Condition Response Anxiety Disorder Y Depression Y Chicken Pox Y Gynecological History Statement/Question [...] SNOMED-CT Code Diagnosis ICD10 Code Diagnosis Note [id number] TORREY DE [place] [facility] [address] [facility] FAWAD CALDWELL [address] 10/03/2024 16:29:54 10/03/2024 17:28:59 Intrauterine contraceptive device in situ 204842273 Z30.431 IUD strings WNL Venereal d isease screening 917978157 Z11.3 Health Concerns Section Related Observation LastModified by Organization Detai ls LastModified Time None Recorded Concern Status LastModified by Organization Details LastModified Time None Recorded Advance Directives Directive None Recorded Payers Insurance Date Sequence Insurance Name Policy Number Policy Fermin Covered Member ID Fermin Member ID Guarantor Name 10/09/2024 1 [facility] - DOS ON OR AFTER 20 (MEDICAID REPLACEMENT - HMO) Constanza Curry [id number] Constanza Curry OBGyn Episode Ob Episode Information Episode Created Date Number of Fetuses Patient Bloodtype Patient rh Status Prepregnancy Weight lbs Domestic Partner Domestic Partner Phone Father Name Street Cleaning Equipment Operator Status 07/17/19 22 1 CLOSED Fetus Data First Name Last Name Admitted to NICU Weight (g) Sex Living Outcome Pediatric Complications Fetus ID Race Codes Race Delivery Type 2721.55 2 M [id number] Torsten Calculation Initial Torsten Date Initial Exam [...] Domestic Partner Domestic Partner Phone Father Name Street Cleaning Equipment Operator Status 07/17/19 22 1 CLOSED Fetus Data First Name Last Name Admitted to NICU Weight (g) Sex Living Outcome Pediatric Complications Fetus ID Race Codes Race Delivery Type 3486.98 85 M [id number] Torsten Calculation Initial Torsten Date Initial Exam [...]
--- OUTSIDE RECORDS SUMMARY | 2024-11-26 11:34 | XMS_ITS | Clinical Summary ---
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 Gender Identity Not on file Sexual Orientation [...] 2-dose series) 2006 Hepatitis B Screening 10/18/2011 HPV Vaccines (1 - 3-dose SCD M series) 2020 Depression Screening 08/26/2023 08/25/2022, 08/25/2022 Cervical Cancer Screening 10/02/2023 10/01/2022 Regular Well Visit/Exam 18-64 10/02/2023 10/01/2022 Influenza Vaccine (#1) 2024 Pneumococcal vaccine <65 Aged Out No longer eligible based on patient's age to complete this topic Medical Devices Implanted Type Area Public Address System Installer Device Identifier Shelf Expiration Date Model / Serial / Lot Synthes 04.016.035s Multiloc 8mm 9.5mm 160mm Cannulated Humeral Left Proximal Short - [id number] Implanted:Qty: 1 on 11/30/2019 by Emmett Quevedo MD at [facility] Left: Humerus Synthes I 05/01/2024 04.016.035 S / / [id number] Synthes 04.019.040s Multiloc 4.5mm 3.9mm 40mm Blunt Tip Self Cut Suture Hole - [id number] Implanted:Qty: 1 on 11/30/2019 by Emmett Quevedo MD at [facility] Left: Humerus Synthes I 04.019.040 S / / Synthes 04.019.042s Multiloc 4.5mm 3.9mm 42mm Blunt Tip Self Cut Suture Hole - [id number] Implanted:Qty: 1 on 11/30/2019 by Emmett Quevedo MD at [facility] Left: Humerus Synthes I 04.019.042 S / / Synthes 04.005.416 4mm 3.3mm 26mm Lock Self Tap Blunt Tip 2 Lead Tibial T25 Full - [id number] Implanted:Qty: 2 on 11/30/2019 by Emmett Quevedo MD at [facility] Left: Humerus Synthes I 04.005.416 / / Synthes 04.019.038s Multiloc 4.5mm 3.9mm 38mm Blunt Tip Self Cut Suture Hole - [id number] Implanted:Qty: 1 on 11/30/2019 by Emmett Quevedo MD at [facility] Left: Humerus Synthes I 04.019.038 S / / Explanted Type Area Public Address System Installer Device Identifier Shelf Expiration Date Model / Serial / Lot Synthes 04.019.034s Multiloc 4.5mm 3.9mm 34mm Blunt Tip Self Cut Suture Hole - [id number] Implanted:Qty: 1 Explanted:Qty: 1 on 11/30/2019 at [facility] Left: Humerus Synthes I 04.019.034S / / Synthes 292.26 Bal[place]ir 2.5mm 285mm [place] [employer] - [id number] Explanted:Qty: 1 on 11/30/2019 at [facility] Left: Humerus Synthes I 292.26 / [...] CDT 10/04/2022 9:41 AM CDT Narrative PATHOLOGY [facility] - 10/06/2022 2:21 PM CDT [facility] Department of Pathology [address] [place] [id number] Final Report Note to Patients: This report [...] the details. Patient Name: CONSTANZA TOBIN Address: [address] [place] [id number] Gender: F : 1995 (Age: 26) Service: Location: [facility] #: [id number] Patient Type: E SPECIMEN Taken: 10/01/2022 Received: 10/04/2022 Accessioned:: 10/05/2022 Reported: 10/06/2022 Physician(s): Dory Quiros M.D. [facility] Diagnosis: SOURCE OF SPECIMEN Imaged Thinprep Pap Test w/ Reflex HPV - Ad Compositor Cytologic Material: STATEMENT OF ADEQUACY - Satisfactory for evaluation; endocervical/transformation zone component present GENERAL CATEGORIZATION: - Negative for intraepithelial lesion or malignancy ANTONIO Blanchard(ASCP) Report Electronically Reviewed and Signed Out By ANTONIO Blanchard(ASCP) 10/06/2022 14:21:14Specimen(s) Received: A: Imaged Thinprep Pap Test w/ Reflex HPV - Ad Compositor Cytologic Material Clinical History: Contraceptive History: IUD [...] determined by the Surgical Pathology Department at [facility] as part of an ongoing auditor/quality program and in compliance with federally mandated [...] characteristics determined by the Surgical Pathology Department [facility]. It has not been cleared or approved by the [place]. Food and Drug Administration. Dory Quiros MD LAB CYTOLOGY ORDERABLES F inal Result [facility] from Last 3 Months or Most Recently Relevant to Health Maintenance Insurance [facility] Care Teams Geography Instructor Relationship Specialty Start Date End Date Bianca Peter MD PCP - General Internal Medicine 08/25/22
== END 2024-11-26 11:48 | disposition home or self-care (01) ==
PROVIDERS: Emergency Provider Nurse Practitioner; Referring Provider Family Medicine
DX: J06.9 Acute upper respiratory infection, unspecified (principal)
CPT/HCPCS: 99213; G0463